=== PATIENT | female | born 2000 | race Caucasian/White ===

== ENCOUNTER 2022-03-20 17:48 | Emergency (ER) | payer MEDICAID, SELFPAY ==
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
[2022-03-20 18:04] VITALS: BP 127/68; PULSE 93; O2SAT 99
[2022-03-20 18:22] VITALS: BP 102/72; PULSE 81; RESP 18; TEMP 37; O2SAT 100; BMI 19.9
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
== END 2022-03-20 20:48 | disposition home or self-care (01) ==
PROVIDERS: Emergency Provider Emergency Medicine Emergency Medical Services; PCP Nurse Practitioner Family
DX: S46.912A Strain of unspecified muscle, fascia and tendon at shoulder and upper arm level, left arm, initial encounter (principal); V43.52XA Car driver injured in collision with other type car in traffic accident, initial encounter; Y93.9 Activity, unspecified; Y92.410 Unspecified street and highway as the place of occurrence of the external cause; Y99.9 Unspecified external cause status
CPT/HCPCS: 73030; 99282; 99283